=== PATIENT | male | born 1970 | race Caucasian/White ===

== ENCOUNTER 2020-10-26 00:56 | Day surgery (SDC) | payer BC, SELFPAY ==
[2020-09-23 12:37] VITALS: BMI 30.2
[2020-10-20 16:10] VITALS: BMI 30.2
[2020-10-26 07:43] VITALS: BP 106/67; PULSE 66; RESP 18; TEMP 36.4; O2SAT 100
[2020-10-26] MEDS: LACTATED RINGERS 1,000 ML 150 ML IV CONT (07:46)
[2020-10-26] MEDS: GENTAMICIN 80MG/SOD CHL 50 ML 80 MG/50 ML BAG 100 MG IVPB (07:47)
--- NOTE | 2020-10-26 07:53 | PM.HPGS ---
History of Present Illness History of Present Illness Consent: Risks, benefits, and alternatives have been discussed and questions answered. Patient agrees to proceed with procedure. Chief complaint: neoplasm screening Narrative: Yasir Meade is a 50 year old male here for first screening colonoscopy, coumadin on hold and using lovenox as bridge Review of Systems Constitutional: Constitutional: Denies headache(s) and Denies weakness Eyes: Eyes: Denies blurry vision ENT: Reports Normal hearing present, Denies headache(s) and Denies neck pain Cardiovascular: Cardiovascular: Denies chest pain and Denies dyspnea Respiratory: Respiratory: Denies dyspnea Gastrointestinal: Gastrointestinal: Reports no additional gastrointestinal complaints Genitourinary: Genitourinary: Denies dysuria Musculoskeletal: Musculoskeletal: Denies neck pain Integumentary/Breasts: Skin/Breast: Denies dry skin Neurologic: Reports Normal hearing present, Denies headache(s) and Denies weakness Psychiatric: Psychiatric: Denies anxiety Endocrine: Endocrine: Denies change in body appearance Hematologic/Lymphatic: Hematologic/Lymphatic: Denies easy bleeding Allergic/Immunologic: Allergic/Immunologic: Denies urticaria PMFSH Past Medical History Medical History (Updated 06/15/20 @ 17:25 by Jordon Lipscomb MD) BMI 32.0-32.9,adult Chronic knee pain Chronic left shoulder pain Chronic low back pain Colon cancer screening Encounter for prostate cancer screening Fever blister Psoriasis Family History Family History (Updated 07/03/18 @ 08:42 by DOCTOR UNKNOWN) Sibling Family history of bipolar disorder Mother Patient's mother is , Onset Age: 80 Family history of cardiovascular disease Father Patient's father is , Onset Age: 84 Social History Social History Smoking status: Never smoker Alcohol intake: never Substance use: never Substance use type: does not use Living arrangements: with family Spiritual care concerns: No Meds Home Medications and Allergies Home Medications Medication Instructions Recorded Confirmed Type aspirin 81 mg tablet,delayed 81 mg PO DAILY 12/24/18 10/26/20 History release carvedilol 12.5 mg tablet 12.5 mg PO Q12H 12/24/18 10/26/20 History sacubitril 24 mg-valsartan 26 mg 1 tablet PO BID 12/24/18 10/26/20 History tablet simvastatin 40 mg tablet 40 mg PO DAILY #30 tablet 02/20/20 10/26/20 Rx alprazolam 0.25 mg tablet 0.25 mg PO TID PRN #90 tablet 04/06/20 10/26/20 Rx levothyroxine 100 mcg tablet 100 mcg PO DAILY #90 tablet 04/27/20 10/26/20 Rx clobetasol 0.05 % topical cream 1 applic TOPICAL BID PRN #60 g 06/15/20 10/26/20 Rx hydrocortisone valerate 0.2 % 1 applic TOPICAL BID PRN #60 g 06/15/20 10/26/20 Rx topical cream valacyclovir 1 gram tablet 1,000 mg PO .COMPLEX PRN #20 tablet 06/15/20 10/26/20 Rx warfarin 10 mg tablet 10 mg PO DAILY tablet 06/15/20 10/26/20 History tramadol 50 mg tablet 50 mg PO Q4H PRN #120 tablet 08/31/20 10/26/20 Rx ferrous sulfate 325 mg PO 3XW 10/20/20 10/26/20 History Allergies Allergy/AdvReac Type Severity Reaction Status Date / Time No Known Allergies Allergy Verified 10/26/20 07:36 Vital Signs Vital Signs - 24 hr 10/26/20 07:43 Temperature 97.6 F Pulse Rate 66 Respiratory Rate 18 Blood Pressure 106/67 Pulse Oximetry 100 Exam Const: General: comfortable and no acute distress HENMT: General nose exam: Normal nares present Eyes: General: appearance normal, both eyes and all related structures Neck: Neck: no JVD Resp: Auscultation: clear to auscultation bilaterally Cardio: Rate: regular rate Rhythm: regular rhythm GI: Inspection: non-distended GI Palp: Yes Soft to palpation Skin: General skin exam: normal color Neuro: General: gait normal Speech: normal speech Extrem: General: normal to inspection Psych: Mental
[2020-10-26] MEDS: AMPICILLIN 2 GM/NS 100 ML 2 GM/100 ML BAG IVPB (07:56)
--- NOTE | 2020-10-26 07:56 | WPDANESEPPF ---
Anes - Initial Pre Proc Eval Procedure: Operation Date: 10/26/20 08:30 Proposed Procedures p Screening Colonoscopy - Bang Orlando MD Date/Time: 10/26/20 07:56 Surgeon: Bang Orlando MD Pre Op Diagnosis: neoplasm screening Patient Data Age: 50 Gender: M Height: 1.68 m Weight: 79.9 kg Last Vital Signs Temp 97.6 F 10/26/20 07:43 Pulse 66 10/26/20 07:43 Resp 18 10/26/20 07:43 BP 106/67 10/26/20 07:43 Pulse Ox 100 10/26/20 07:43 Allergies Allergy/AdvReac Type Severity Reaction Status Date / Time No Known Allergies Allergy Verified 10/26/20 07:36 Home Medications Medication Instructions Recorded Confirmed Type aspirin 81 mg tablet,delayed 81 mg PO DAILY 12/24/18 10/26/20 History release carvedilol 12.5 mg tablet 12.5 mg PO Q12H 12/24/18 10/26/20 History sacubitril 24 mg-valsartan 26 mg 1 tablet PO BID 12/24/18 10/26/20 History tablet simvastatin 40 mg tablet 40 mg PO DAILY #30 tablet 02/20/20 10/26/20 Rx alprazolam 0.25 mg tablet 0.25 mg PO TID PRN #90 tablet 04/06/20 10/26/20 Rx levothyroxine 100 mcg tablet 100 mcg PO DAILY #90 tablet 04/27/20 10/26/20 Rx clobetasol 0.05 % topical cream 1 applic TOPICAL BID PRN #60 g 06/15/20 10/26/20 Rx hydrocortisone valerate 0.2 % 1 applic TOPICAL BID PRN #60 g 06/15/20 10/26/20 Rx topical cream valacyclovir 1 gram tablet 1,000 mg PO .COMPLEX PRN #20 tablet 06/15/20 10/26/20 Rx warfarin 10 mg tablet 10 mg PO DAILY tablet 06/15/20 10/26/20 History tramadol 50 mg tablet 50 mg PO Q4H PRN #120 tablet 08/31/20 10/26/20 Rx ferrous sulfate 325 mg PO 3XW 10/20/20 10/26/20 History Patient hx anesthesia problems: none Family hx anesthesia problems: none PMFSH Past Medical History Medical History (Updated 06/15/20 @ 17:25 by Jordon Lipscomb MD) BMI 32.0-32.9,adult Chronic knee pain Chronic left shoulder pain Chronic low back pain Colon cancer screening Encounter for prostate cancer screening Fever blister Psoriasis Family History Family History (Updated 07/03/18 @ 08:42 by DOCTOR UNKNOWN) Sibling Family history of bipolar disorder Mother Patient's mother is , Onset Age: 80 Family history of cardiovascular disease Father Patient's father is , Onset Age: 84 Social History Social History Smoking status: Never smoker Alcohol intake: never Substance use: never Substance use type: does not use Living arrangements: with family Spiritual care concerns: No Anes - Eval Final PreProcedure Day of Procedure 10/26/20 07:56 Patient weight: normal Heart: regular rate and rhythm Lungs: clear to auscultation Airway: Mallampati scale class II Neurological: alert and oriented Last oral intake: >/= 8 hours ASA classification: III Emergent: no Anesthetic plan: proceed Anesthesia type and monitoring: general GIVS and standard monitoring Informed Consent: The patient's anesthetic plan and its attendant risks and benefits were discussed with the patient/family/POA. Questions were solicited and answers provided to the satisfaction of the patient/family/POA.
[2020-10-26 08:16] VITALS: BP 93/52; PULSE 60; RESP 18; O2SAT 99
[2020-10-26 08:26] VITALS: BP 111/67; PULSE 60; RESP 18; O2SAT 100
[2020-10-26 08:36] VITALS: BP 116/71; PULSE 60; RESP 16; O2SAT 99
--- NOTE | 2020-10-26 08:47 | SUR.PHASEII ---
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
== END 2020-10-26 08:36 | disposition home or self-care (01) ==
PROVIDERS: PCP Family Medicine; Visit Provider Internal Medicine Gastroenterology
PROC: 0DJD8ZZ Inspection of Lower Intestinal Tract, Via Natural or Artificial Opening Endoscopic (ICD-10-PCS; CPT 45378; principal; 2020-10-26 08:30)
DX: Z12.11 Encounter for screening for malignant neoplasm of colon (principal); K57.30 Diverticulosis of large intestine without perforation or abscess without bleeding; L40.9 Psoriasis, unspecified; G89.29 Other chronic pain; Z79.891 Long term (current) use of opiate analgesic; Z79.01 Long term (current) use of anticoagulants
CPT/HCPCS: 45378; J0290; J1580; J7120

== ENCOUNTER 2022-03-08 01:08 | Day surgery (SDC) | payer OTHER, SELFPAY ==
[2022-03-01 09:57] VITALS: BMI 28.1
[2022-03-08 08:44] VITALS: BP 91/51; PULSE 65; RESP 18; TEMP 36.3; O2SAT 100
[2022-03-08] MEDS: LACTATED RINGERS 1,000 ML 150 ML IV CONT (08:46)
[2022-03-08] MEDS: GENTAMICIN 80MG/SOD CHL 50 ML 80 MG/50 ML BAG 100 MG IVPB (08:55)
[2022-03-08] MEDS: AMPICILLIN 2 GM/NS 100 ML 2 GM/100 ML BAG IVPB (09:18)
--- NOTE | 2022-03-08 09:38 | WPDANESEPPF ---
Anes - Initial Pre Proc Eval Procedure: Operation Date: 03/08/22 10:00 Proposed Procedures p Esophagogastroduodenoscopy - Bang Orlando MD Date/Time: 03/08/22 09:38 Surgeon: Bang Orlando MD Pre Op Diagnosis: anemia, positive hemoccult Patient Data Age: 51 Gender: M Height: 1.73 m Weight: 83.5 kg Last Vital Signs Temp 97.3 F L 03/08/22 08:44 Pulse 65 03/08/22 08:44 Resp 18 03/08/22 08:44 BP 91/51 L 03/08/22 08:44 Pulse Ox 100 03/08/22 08:44 O2 Del Method Room Air 03/08/22 08:44 Allergies Allergy/AdvReac Type Severity Reaction Status Date / Time No Known Allergies Allergy Verified 03/08/22 08:42 Home Medications Medication Instructions Recorded Confirmed Type aspirin 81 mg tablet,delayed 81 mg PO DAILY 12/24/18 03/08/22 History release (Adult Aspirin Regimen) carvedilol 12.5 mg tablet 12.5 mg PO Q12H 12/24/18 03/08/22 History sacubitril 24 mg-valsartan 26 mg 1 tablet PO BID 12/24/18 03/08/22 History tablet (Entresto) clobetasol 0.05 % topical cream 1 applic topical BID PRN 06/15/20 03/08/22 Rx psoriasis #60 grams hydrocortisone valerate 0.2 % 1 applic topical BID PRN rash #60 06/15/20 03/08/22 Rx topical cream grams valacyclovir 1 gram tablet 1,000 mg PO .COMPLEX PRN fever 06/15/20 03/08/22 Rx blister #20 tabs warfarin 10 mg tablet 10 mg PO DAILY 06/15/20 03/08/22 History ferrous sulfate 325 mg (65 mg 325 mg PO 3XW 10/20/20 03/08/22 History iron) tablet tramadol 50 mg tablet 50 mg PO Q4H PRN pain #120 tabs 09/24/21 03/08/22 Rx alprazolam 0.25 mg tablet (Xanax) 0.25 mg PO TID PRN anxiety #90 tabs 10/11/22 01/31/23 Rx simvastatin 40 mg tablet 40 mg PO DAILY #30 tabs 11/30/21 03/08/22 Rx levothyroxine 100 mcg tablet 100 mcg PO DAILY #90 tabs 01/06/22 03/08/22 Rx Patient hx anesthesia problems: none Family hx anesthesia problems: none Results Review: All pre-operative results and documents have been reviewed as part of the pre-operative evaluation. [facility] Past Medical History Medical History BMI 30.0-30.9,adult BMI 31.0-31.9,adult BMI 32.0-32.9,adult Chronic knee pain Chronic left shoulder pain Chronic low back pain Colon cancer screening (10/26/20) normal colonoscopy on 10/26/2020 with follow-up in 10 years. Diverticulosis. Encounter for prostate cancer screening PSA 0.64 on 11/30/2021. Fecal occult blood test positive (12/15/21) Fever blister Obesity (BMI 30.0-34.9) Psoriasis Family History Family History Sibling Family history of bipolar disorder Mother Patient's mother is , Onset Age: 80 Family history of cardiovascular disease Father Patient's father is , Onset Age: 84 Social History Social History Smoking status: Never smoker Smokeless tobacco user: chewing tobacco Additional smoking assessment comments: 20 YEARS CHEWING Alcohol intake: current Alcohol use details: rarely Substance use: never Substance use type: does not use Lack of Transportation: No Lack of Food: Never True Current Housing: I Have Housing Concerned About Future Housing: No Difficulty Paying Gas/Electric Bills: No Difficulty Paying for Meds: No Currently Unemployed: No Education: Trade/Vocational Certificate Difficulty w/ Childcare or Family Care: No Living arrangements: with family Spiritual care concerns: No Anes - Eval Final PreProcedure Day of Procedure 03/08/22 09:38 Patient weight: normal Heart: regular rate and rhythm Lungs: clear to auscultation Airway: Mallampati scale class II Neurological: alert and oriented Last oral intake: >/= 8 hours ASA classification: III Emergent: no Anesthetic plan: proceed Anesthesia type and monitoring: general GIVS and standard monitoring Resu
--- NOTE | 2022-03-08 10:04 | PM.HPGS ---
History of Present Illness History of Present Illness Consent: Risks, benefits, and alternatives have been discussed and questions answered. Patient agrees to proceed with procedure. 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 He had colonoscopy last year as screening, no colitis or polyps, only mild diverticulosis. Primary just performed prostate exam and found occult blood in stool (his hb was normal but found low iron saturation- he is taking iron). Now on lovenox in preparation for egd Review of Systems Constitutional: Constitutional: Denies headache(s) and Denies weakness Eyes: Eyes: Denies blurry vision ENT: Reports Normal hearing present, Denies headache(s) and Denies neck pain Cardiovascular: Cardiovascular: Denies chest pain and Denies dyspnea Respiratory: Respiratory: Denies dyspnea Gastrointestinal: Gastrointestinal: Reports no additional gastrointestinal complaints Genitourinary: Genitourinary: Denies dysuria Musculoskeletal: Musculoskeletal: Denies neck pain Integumentary/Breasts: Skin/Breast: Denies dry skin Neurologic: Reports Normal hearing present, Denies headache(s) and Denies weakness Psychiatric: Psychiatric: Denies anxiety Endocrine: Endocrine: Denies change in body appearance Hematologic/Lymphatic: Hematologic/Lymphatic: Denies easy bleeding Allergic/Immunologic: Allergic/Immunologic: Denies urticaria PMFSH Past Medical History Medical History (Reviewed 01/13/22 @ 15:12 by Jannet Mahoney [facility]) BMI 30.0-30.9,adult BMI 31.0-31.9,adult BMI 32.0-32.9,adult Chronic knee pain Chronic left shoulder pain Chronic low back pain Colon cancer screening (10/26/20) normal colonoscopy on 10/26/2020 with follow-up in 10 years. Diverticulosis. Encounter for prostate cancer screening PSA 0.64 on 11/30/2021. Fecal occult blood test positive (12/15/21) Fever blister Obesity (BMI 30.0-34.9) Psoriasis Family History Family History (Reviewed 01/13/22 @ 15:12 by Jannet Mahoney [facility]) Sibling Family history of bipolar disorder Mother Patient's mother is , Onset Age: 80 Family history of cardiovascular disease Father Patient's father is , Onset Age: 84 Social History Social History (Reviewed 01/13/22 @ 15:12 by Jannet Mahoney [facility]) Smoking status: Never smoker Smokeless tobacco user: chewing tobacco Additional smoking assessment comments: 20 YEARS CHEWING Alcohol intake: current Alcohol use details: rarely Substance use: never Substance use type: does not use Lack of Transportation: No Lack of Food: Never True Current Housing: I Have Housing Concerned About Future Housing: No Difficulty Paying Gas/Electric Bills: No Difficulty Paying for Meds: No Currently Unemployed: No Education: Trade/Vocational Certificate Difficulty w/ Childcare or Family Care: No Living arrangements: with family Spiritual care concerns: No Meds Home Medications and Allergies Home Medications Medication Instructions Recorded Confirmed Type aspirin 81 mg tablet,delayed 81 mg PO DAILY 12/24/18 03/08/22 History release (Adult Aspirin Regimen) carvedilol 12.5 mg tablet 12.5 mg PO Q12H 12/24/18 03/08/22 History sacubitril 24 mg-valsartan 26 mg 1 tablet PO BID 12/24/18 03/08/22 History tablet (Entresto) clobetasol 0.05 % topical cream 1 applic topical BID PRN 06/15/20 03/08/22 Rx psoriasis #60 grams hydrocortisone valerate 0.2 % 1 applic topical BID PRN rash #60 06/15/20 03/08/22 Rx topical cream grams valacyclovir 1 gram tablet 1,000 mg PO .COMPLEX PRN fever 06/15/20 03/08/22 Rx blister #20 tabs warfarin 10 mg tablet 10 mg PO DAILY 06/15/20 03/08/22 History ferrous sulf
[2022-03-08 10:21] VITALS: BP 89/48; PULSE 62; RESP 20; O2SAT 100
[2022-03-08 10:31] VITALS: BP 90/56; PULSE 60; RESP 16; O2SAT 100
[2022-03-08 10:41] VITALS: BP 107/59; PULSE 60; RESP 18; O2SAT 100
== END 2022-03-08 11:00 | disposition home or self-care (01) ==
PROVIDERS: PCP Family Medicine; Visit Provider Internal Medicine Gastroenterology
PROC: 0DJ08ZZ Inspection of Upper Intestinal Tract, Via Natural or Artificial Opening Endoscopic (ICD-10-PCS; CPT 43235; principal; 2022-03-08 10:00)
DX: D64.9 Anemia, unspecified (principal); R19.5 Other fecal abnormalities; K44.9 Diaphragmatic hernia without obstruction or gangrene; L40.9 Psoriasis, unspecified; E66.9 Obesity, unspecified; Z68.28 Body mass index [BMI] 28.0-28.9, adult; F17.220 Nicotine dependence, chewing tobacco, uncomplicated; Z79.4 Long term (current) use of insulin; Z95.810 Presence of automatic (implantable) cardiac defibrillator; Z79.82 Long term (current) use of aspirin; Z79.01 Long term (current) use of anticoagulants
CPT/HCPCS: 43235; J0290; J1580; J7120

== ENCOUNTER 2024-02-02 11:15 | Emergency (ER) | payer OTHER, SELFPAY ==
[2024-02-02 11:28] VITALS: BP 125/79; PULSE 67; RESP 16; TEMP 37.1; O2SAT 100
--- NOTE | 2024-02-02 12:40 | ED.URI ---
HPI - URI/Sore Throat General Chief Complaint: Upper Respiratory Infection Stated Complaint: Congestion/Neck Pain Time Seen by Provider: 02/02/24 12:41 Source: patient, RN notes reviewed and old records reviewed Mode of arrival: ambulatory Limitations: no limitations History of Present Illness HPI Narrative: 53 year old male presents to express care with complaints of of 4 day history of sinus pressure and congestion cough which is nonproductive, tickle feeling in his throat and some bilateral ear pressure. Patient reports that this morning he started with some neck and discomfort to occipital base of his head and he did take a Tramadol for his discomfort. Patient denies any known fevers, chills or body aches.. Patient reports that he had endocarditis in 2016 requiring removal of previous heart valve replacement and implantation of mechanical valve and is on blood thinner daily. MD elicited complaint: cough, sore throat and other (congestion and neck pain) Pertinent past history: other (endocarditis) Onset (ago): day(s) (4) Pain scale (0-10): 4 Able to tolerate fluids by mouth: Yes Treatments prior to arrival: other (tramadol, uses nasal sprays daily) Related Data Home Medications ?Medication ?Instructions ?Recorded ?Confirmed ?Last Taken ?Type aspirin 81 mg tablet,delayed 81 mg PO DAILY 12/24/18 01/25/24 10/25/20 History release (Adult Aspirin Regimen) carvedilol 12.5 mg tablet 12.5 mg PO Q12H 12/24/18 01/25/24 03/08/22 History sacubitril 24 mg-valsartan 26 mg 1 tablet PO BID 12/24/18 01/25/24 03/08/22 History tablet (Entresto) warfarin 10 mg tablet 10 mg PO DAILY 06/15/20 01/25/24 03/03/22 History ferrous sulfate 325 mg (65 mg 325 mg PO DAILY 06/16/22 01/25/24 Unknown History iron) tablet magnesium oxide 500 mg PO DAILY 06/16/22 01/25/24 Unknown History Allergies Allergy/AdvReac Type Severity Reaction Status Date / Time No Known Allergies Allergy Verified 02/02/24 12:41 Review of Systems Review of Systems: CONSTITUTIONAL: Denies malaise, chills, sweats, or fever. EYES: Denies visual changes, redness, or discharge. ENT: Reports rhinorrhea, congestion, sinus pain, otalgia and sore throat. CARDIOVASCULAR: Denies chest pain, palpitations, or edema. RESPIRATORY: Reports dry cough.? Denies dyspnea. GASTROINTESTINAL: Denies abdominal pain, nausea, vomiting, diarrhea SKIN: Denies rash or itching. MUSCULOSKELETAL: Denies myalgia. NEUROLOGIC: reports headache pain occipital area All systems reviewed & are unremarkable except as noted in HPI and below PMFSH Past Medical History Medical History BMI 26.0-26.9,adult Hypogonadism male (07/05/23) total testosterone low at 243 with free testosterone 42.7 on 07/05/2023. Testosterone 262, free testosterone 42.6 on 01/22/2024. Choking Stroke Dysfunction of left eustachian tube Chronic nonallergic rhinitis BMI 28.0-28.9,adult GERD (gastroesophageal reflux disease) (~12/2022) Decreased libido Nasal sore BMI 27.0-27.9,adult Overweight (BMI 25.0-29.9) Iron deficiency iron 31 with 9% saturation and ferritin 119 on 05/20/2022. Iron 72, 21% saturation, ferritin 100 on 12/26/2022.Iron 46 with 15% saturation and ferritin 128 on 07/05/2023. Iron 81 with 24% saturation and ferritin 180 with hemoglobin 14.3 on 01/22/2024. Muscle spasm total CK level slightly elevated at 239. Fecal occult blood test positive (12/15/21) normal EGD with hiatal hernia 03/08/2022. BMI 31.0-31.9,adult Obesity (BMI 30.0-34.9) BMI 30.0-30.9,adult Colon cancer screening (10/26/20) normal colonoscopy on 10/26/2020 with follow-up in 10 years. Diverticulosis. BMI 32.0-32.9,adult Fever blister Encounter for prostate cancer screening PSA 0.64 on 11/30/2021. PSA 0.56 on 12/26/2022. PSA 0.53 on 01/22/2024. Psoriasis Chronic knee pain Chronic left shoulder pain Chronic low back pain Surgical History Surgical History Pacemaker new pacemaker august 2023 H/O heart surgery History of back surgery Family History Family History Sibling Family history of bipolar disorder Mother Patient's mother is , Onset Age: 80 Family history of cardiovascular disease Heart disease Father Patient's father is , Onset Age: 84 Cancer Social History Social History Smoking status: Never smoker Smokeless tobacco user: chewing tobacco Additional smoking assessment comments: 20 YEARS CHEWING Alcohol intake: current Alcohol use details: rarely Substance use: never Substance use type: does not use Lack of Transportation: No Lack of Food: Never True Current Housing: I Have Housing Concerned About Future Housing: No Difficulty Paying Gas/Electric Bills: No Difficulty Paying for Meds: No Currently Unemployed: No Education: Trade/Vocational Certificate Difficulty w/ Childcare or Family Care: No Living arrangements: with family Spiritual care concerns: No Comments At time of signature, agree with nursing past medical, surgical, social and family history. There is no relevant family history pertinent to the presenting complaint Exam Narrative: GENERAL: Well-appearing, well-nourished, and in no acute distress. HEAD: Normocephalic EYES: PERRLA, conjunctivae clear ENT: Nares clear, turbinates edematous and erythematous, clear discharge. Mucous membranes moist. TM pearly sheikh with dull light reflex bilaterally; no tragal tenderness. Oropharynx erythematous without lesions. Tonsils not enlarged and without exudate, no drooling, no hoarseness, no trismus, uvula midline.some post nasal drainage NECK: Supple. No lymphadenopathy CHEST: Clear to auscultation, breath sounds equal. No wheezing, rhonchi, rales, or stridor. No respiratory distress, speaks in full sentences.occasional cough noted SAO2 100% on room air HEART: Regular rate and rhythm. No murmur heard. SKIN: Warm, dry, no rash. NEURO: Alert and oriented x3. PSYCH: Normal mood and affect Course Course Emergency Course: Patient is aware of diagnosis, understands and agrees to treatment plan.? Anticipatory guidance given.? Patient agrees to follow-up as directed and is aware of reasons to seek care at the emergency department. Portions of this record may have been created with voice recognition software Level of Care: Express Care Visit Vital Signs Vital signs: Vital Signs Temperature 37.1 C 02/02/24 11:28 Pulse Rate 67 02/02/24 11:28 Respiratory Rate 16 02/02/24 11:28 Blood Pressure 125/79 02/02/24 11:28 Pulse Oximetry 100 02/02/24 11:28 Temperature 37.1 C 02/02/24 11:28 Pulse Rate 67 02/02/24 11:28 Respiratory Rate 16 02/02/24 11:28 Blood Pressure 125/79 02/02/24 11:28 Pulse Oximetry 100 02/02/24 11:28 Oxygen Delivery Room Air 02/02/24 12:30 Reviewed MDM - URI/Sore Throat MDM Narrative Medical decision making narrative: Differential diagnosis considered: King virus, strep pharyngitis, allergic rhinitis, upper respiratory tract infection, sinusitis, rhinosinusitis, nasopharyngitis. viral pharyngitis, otitis media, otitis externa, pneumonia, bronchitis, viral cough syndrome, viral syndrome, and influenza.? Exam findings show no acute concerns or changes; patient is non-toxic appearing and is in no distress.? Patient is appropriate for outpatient treatment and follow-up. Differential Diagnosis Differential diagnosis: Likely upper respiratory infection, otitis media, sinusitis, viral infection, influenza, pharyngitis and other (strep,COVID) Medical Records Attestation: I reviewed the patient's medical records. Lab Data Attestation: I reviewed the patient's lab results. Lab results narrative: influenza a negative influenza B negative, COVID antigen, strep negative culture sent Labs: Lab Results 02/02/24 02/02/24 Range/Units 12:38 13:33 POC Influenza A Ag Negative (Negative) POC Influenza B Ag Negative (Negative) POC SARS CoV-2 Ag Negative (Negative) POC Grp A Strep Screen Negative (Negative) reviewed Critical Care Time Critical Care Time Critical Care Time: No Discharge Plan Discharge Clinical Impression: Upper respiratory infection Qualifiers: URI type: unspecified URI Qualified Code(s): J06.9 - Acute upper respiratory infection, unspecified Patient Disposition: Home, Self-Care Condition: Stable Instructions: Upper Respiratory Infection (ED) Additional Instructions: Increase fluids especially juices and water [id number] cough and cold medicine of your choice for your symptoms, read labels or if questions ask pharmacist Henry Claritin or Anayeli daily include Coricidin brand decongestant may take Tylenol or use tramadol for acute pain heat to the face 20-30 minutes 4-6 times a day for pain Salt water gargles, throat lozenges or throat sprays as desired Your strep test today was negative. A throat culture will be sent to the laboratory for further testing. IF the test is positive, you will receive a phone call within 48 hours and an appropriate antibiotic will be initiated at that time. If your symptoms persist, change or worsen significantly before you can contact your personal physician then please, without delay, go to the emergency department for further evaluation. Follow-up with PCP in 7-10 days or sooner if needed Follow up with PCP soon in regards to your blood pressure which is elevated above threshold for referral. Blood pressure above 120/80 may indicate pre-hypertension. Patient Language: Bangladeshi Prescriptions: No Action warfarin 10 mg tablet 10 mg PO DAILY ferrous sulfate 325 mg (65 mg iron) tablet 325 mg PO DAILY magnesium oxide 500 mg tablet 500 mg PO DAILY mupirocin 2 % ointment 1 applic topical BID Qty: 22 5RF Rx Instructions: apply twice daily until clear hydrocortisone valerate 0.2 % cream 1 applic topical BID PRN (Reason: rash) Qty: 60 5RF Rx Instructions: applied to rash on buttocks twice daily until clear but no longer than 2 weeks at a time valacyclovir 1 gram tablet 1,000 mg PO .COMPLEX PRN (Reason: fever blister) Qty: 20 5RF Rx Instructions: take 2 tablets PO twice daily for 1 day at the onset of fever blister PRN; clobetasol 0.05 % cream 1 applic topical BID PRN (Reason: psoriasis) Qty: 60 5RF Rx Instructions: apply to rash on the knees twice daily until clear but no longer than 2 weeks at a time fluticasone propionate [Flonase Allergy Relief] 50 mcg/actuation spray,suspension 1 spray intranasal BID Qty: 16 11RF Rx Instructions: administer into each nostril ipratropium bromide 21 mcg (0.03 %) spray,non-aerosol 2 spray intranasal TID Qty: 30 0RF Rx Instructions: administer into each nostril. aim back/up/out aspirin [Adult Aspirin Regimen] 81 mg tablet,delayed release (DR/EC) 81 mg PO DAILY carvedilol 12.5 mg tablet 12.5 mg PO Q12H Entresto 24-26 mg tablet 1 tablet PO BID simvastatin 40 mg tablet 40 mg PO DAILY Qty: 30 11RF tramadol 50 mg tablet 50 mg PO Q4H PRN (Reason: pain) Qty: 120 5RF levothyroxine 100 mcg tablet 100 mcg PO DAILY Qty: 90 3RF alprazolam [Xanax] 0.25 mg tablet 0.25 mg PO TID PRN (Reason: anxiety) Qty: 90 5RF Follow-up/Referrals: Jordon Lipscomb MD [Primary Care Provider] - Time of Disposition: 13:34 Quality [place] Coma Scale Eyes: Open Verbal: Oriented and Alert Motor: Follows Commands Jose Elias Coma Total Score: 15
[2024-02-02 13:00] LABS: EDCOVIDSCREEN Negative (Negative); EDINFLUASCREEN Negative (Negative); EDINFLUBSCREEN Negative (Negative)
[2024-02-02 13:35] LABS: EDSTREPNEGPOS1 Negative (Negative)
== END 2024-02-02 13:39 | disposition home or self-care (01) ==
PROVIDERS: Emergency Provider Registered Nurse; PCP Family Medicine
DX: J06.9 Acute upper respiratory infection, unspecified (principal); Z20.822 Contact with and (suspected) exposure to COVID-19
CPT/HCPCS: 87081; 87426; 87804; 87880; 99213; G0463